=== PATIENT | female | born 1955 | race Asian ===

== ENCOUNTER → 2017-02-08 | Outpatient (CLI) | payer OTHER ==
[~2017-02-08] MED LIST: KEFLEX 500MG.500 MG PO; VICODIN 5/500 T1 TAB PO
--- NOTE | 2017-02-08 12:41 | RADIOLOGY REPORT PS360 ---
FOOT-RT-3 VIEWS Ordering Physician: Cici HAGER Patient Age: 61 years: Female Bilateral foot pain HISTORY: SABAS KNEE PAIN,SABAS FOOT PAIN,SABAS HAND PAIN,CERVICALGIA TECHNIQUE: 3 views right foot FINDINGS Osseous structures intact no fracture evident joint spaces well-maintained. . The lateral view is rotated nonweightbearing view question borderline pes planus on this image. Also perhaps borderline to mild hallux valgus IMPRESSION: -- No fracture or acute findings. Additional comments observations in text
--- NOTE | 2017-02-08 12:42 | RADIOLOGY REPORT PS360 ---
FOOT-LT-3 VIEWS Ordering Physician: Cici HAGER Patient Age: 61 years: Female HISTORY: SABAS KNEE PAIN,SABAS FOOT PAIN,SABAS HAND PAIN,CERVICALGIA TECHNIQUE: 3 views left foot nonweightbearing FINDINGS No fracture nor acute findings. No periosteal reaction. Joint spaces well-maintained no erosions. There may be some minor soft tissue swelling overlying the fifth and first MTP joint is seen. The lateral film is rotated making difficult to fully assess plantar arch. Minimal plantar arch borderline pes planus. IMPRESSION: No acute findings. minor comments in text
--- NOTE | 2017-02-08 12:43 | RADIOLOGY REPORT PS360 ---
CERVICAL SPINE 4 OR 5 VIEWS Ordering Physician: Cici HAGER Patient Age: 61 years: Female HISTORY: SABAS KNEE PAIN,SABAS FOOT PAIN,SABAS HAND PAIN,CERVICALGIA TECHNIQUE: Five-view cervical spine series FINDINGS The cervical vertebral bodies are intact with normal alignment. Vertebral bodies facets appear satisfactory. No foramen widely patent bilaterally. No foraminal encroachment. C1 1 C2 relationships normal. Prevertebral soft tissues normal. Barely appreciable dextrocurvature lower C-spine may merely be positional IMPRESSION: Cervical spine intact . Negative No significant appearing findings
--- NOTE | 2017-02-08 12:49 | RADIOLOGY REPORT PS360 ---
HAND-RT 3 VIEWS, HAND-LT-3 VIEWS Ordering Physician: Cici HAGER Patient Age: 61 years: Female HISTORY: SABAS KNEE PAIN,SABAS FOOT PAIN,SABAS HAND PAIN,CERVICALGIA TECHNIQUE: 3 view of right and left hand RIGHT HAND 3 views . There is some slight narrowing at the DIP joints of the fingers most evident at the index finger, and long finger. Early posterior marginal osteophytes most evident at DIP joint of the index finger. PIP joints unremarkable. MCP joints unremarkable. Carpals intact and symmetric.. IMPRESSION. 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 Findings slightly more evident at right hand the left LEFT HAND 3 VIEWS . Findings are less evident at left hand. There is some early narrowing at the IP joint of fingers. The DIP joint of the index finger with some early sharpening at early marginal osteophyte formation posteriorly there is some minor soft tissue swelling possibly at the index finger. The PIP joints demonstrate borderline narrowing bilaterally. MCP joints intact. No erosions are evident. The metacarpals intact. The carpals are symmetric. And appear intact overall. IMPRESSION: -------- Minor subtle degenerative arthritic changes at the DIP joints of the left hand; most notable at the index finger Borderline narrowing at PIP joints hands bilaterally
--- NOTE | 2017-02-11 07:03 | RADIOLOGY REPORT PS360 ---
KNEE-3 VIEWS-RT, KNEE-3 VIEWS-LT Ordering Physician: Cici HAGER Patient Age: 61 years: Female HISTORY: SABAS KNEE PAIN,SABAS FOOT PAIN,SABAS HAND PAIN,CERVICALGIA TECHNIQUE: 3 views right knee. 3 view left knee ======== RIGHT KNEE. & LEFT KNEE............. Knees appear intact. . No fracture. Joint space modest but adequate maintained bilaterally. There is some mild sharpening about margin of the joint, particularly evident along medial margin medial tibial plateau at both right & left knee. Less evident sharpening at the lateral margin. This may reflect some very early degenerative changes but unimpressive at this point. No joint effusion Bones well mineralized bilaterally At the LEFT KNEE there is a tiny subtle 4 mm subchondral cyst suggested just beneath the just beneath the medial aspect of the medial tibial plateau. There is Also likely reflection of early developing degenerative changes.. 8 At the RIGHT KNEE suggestion of perhaps scant joint effusion suprapatella bursa. Barely evident. No significant foreign body or other features of the knee. IMPRESSION: 1. No fracture. No prominent findings either knee. 2. Only suggestion of scant very early degenerative changes medial compartment of both knees, left greater than right. Slight sharpening joint margins, most notable about medial margin medial tibial plateau bilateral.-Left greater than right . Small subchondral cyst beneath the medial tibial plateau on left 3. Only suggestion of scant joint effusion at the right knee.
== END ==
LOC: RAD 11:27
DX: M25.562 Pain in left knee (principal); M25.561 Pain in right knee; M79.671 Pain in right foot; M79.672 Pain in left foot; M79.642 Pain in left hand; M79.641 Pain in right hand; M54.2 Cervicalgia

== ENCOUNTER → 2017-06-06 | Outpatient (CLI) | payer OTHER ==
--- NOTE | 2017-06-08 12:16 | RADIOLOGY REPORT PS360 ---
MRI-LOW EXT ANY JOINT W/O-LT HISTORY: Acute pain in left knee with pain and swelling medial and laterally. Weakness in the knee ACUTE PAIN OF LEFT KNEE, LEFT FOOT PAIN ORDERING PHYSICIAN: Cici HAGER PATIENT AGE: 61 years COMPARISON: Radiograph of 02/08/2017 TECHNIQUE: Standard multiplanar multiecho sequences are performed without contrast. FINDINGS: The cruciate ligaments are intact. The collateral ligaments, patellar tendon, and quadriceps tendon also appear intact. No evidence of meniscal tear. There are mild osteoarthritic changes of the medial and lateral compartment and patellofemoral joint. Patellar cartilage is preserved. There is a medium sized knee joint effusion most prominent in the suprapatellar and retropatellar region. Plica are noted posterior to the patella. There is some mild bone marrow edema involving the medial femoral condyle and medial tibial plateau which may be related to the osteoarthritic change. No fracture apparent small area of decreased T1 and increased T2 signal involves the proximal tibia centrally somewhat medial and may be related to underlying edematous change. IMPRESSION: 1. No evidence of internal derangement. 2. Mild tricompartmental osteoarthritic change. 3. Knee joint effusion with synovial plica
--- NOTE | 2017-06-10 05:34 | RADIOLOGY REPORT PS360 ---
MRI-LOW EXT OTH THN JNT W/O-LT CLINICAL INDICATION: ACUTE PAIN OF LEFT FOOT, LEFT FOOT PAIN, burning and pain] ORDERING PHYSICIAN: Cici HAGER PATIENT AGE: 61 years TECHNIQUE: Multiplanar multiecho sequences performed of the mid foot and forefoot without contrast COMPARISON: Radiograph 02/08/2017 FINDINGS: There are mild hypertrophic changes of the distal aspect of the first metatarsal with minimal hallux valgus with first metatarsophalangeal angle of 14 degrees. Small area of increased T2 signal involves the distal first metatarsal medially suggesting a small subcortical cyst. There are mild osteoarthritic changes of the first metatarsal sesamoid junction. No fracture or dislocation is evident. No evidence of stress fracture. No obvious neuroma is within the toes. No destructive process apparent. No abscess or abnormal fluid collection. IMPRESSION: 1. Mild hallux valgus. 2. Mild degenerative change with mild osteophyte formation along the distal first metatarsal and mild osteoarthritic change of the first metatarsal sesamoid junction with a small subcortical cyst in the distal first metatarsal. 3. No evidence of fracture or osteomyelitis
== END ==
LOC: RAD 06-04 13:45
DX: M79.672 Pain in left foot (principal); M25.562 Pain in left knee